=== PATIENT | female | born 1955 | race Caucasian/White ===

== ENCOUNTER 2017-08-21 11:57 | Emergency (ER) | payer BC ==
[2017-08-21 12:17] VITALS: BP 123/81
--- NOTE | 2017-08-21 13:02 | UC ---
Respiratory Complaint HPI - HPI Summary HPI Summary: Sore throat and cough for about 4 days. No fever. Sick relatives were visiting. She denies lung disease, smoking, asthma. It hurts more to cough. - History of Current Complaint Chief Complaint: UCRespiratory Stated Complaint: SORE THROAT,EARS Time Seen by Provider: 08/21/17 12:22 Hx Obtained From: Patient Hx Last Menstrual Period: 2 yrs ?: No Onset/Duration: Gradual Onset, Lasting Days Timing: Constant Severity Initially: Mild Severity Currently: Severe Pain Intensity: 7 Character: Cough: Productive - green. Aggravating Factors: Deep Breaths, Recumbent Position Alleviating Factors: Upright Position, Spontaneous Resolution Associated Signs And Symptoms: Positive: URI, Nasal Congestion. Negative: Dyspnea, Fever, Chills, Hemoptysis, Dizziness, Calf Pain, Calf Swelling - Risk Factors Pulmonary Embolism Risk Factors: Negative - Allergies/Home Medications Allergies/Adverse Reactions: Allergies Allergy/AdvReac Type Severity Reaction Status Date / Time Sulfa (Sulfonamide AdvReac Diarrhea Verified 08/21/17 12:18 Antibiotics) bee sting Allergy Swelling Uncoded 08/21/17 12:19 Of Face,Lips,& Throat Home Medications: Home Medications Ibuprofen TAB* [Motrin TAB* 400 MG] 400 mg PO ONCE PRN 08/21/17 [History Confirmed 08/21/17] Telmisartan 80 mg PO QPM 08/21/17 [History Confirmed 08/21/17] PMH/Surg Hx/FS Hx/Imm Hx Previously Healthy: No - HTN. - Surgical History Surgical History: Yes Surgery Procedure, Year, and Place: c-sections x4, appy 2008, L knee meniscus, ACL, patella repair 06/07 - Family History Known Family History: Positive: Hypertension - Social History Occupation: Employed Full-time Lives: With Family Alcohol Use: Rare Substance Use Type: None Smoking Status (MU): Never Smoked Tobacco - Immunization History Most Recent Influenza Vaccination: Not the Season Review of Systems ENT: Sore Throat Respiratory: Cough All Other Systems Reviewed And Are Negative: Yes Physical Exam Triage Information Reviewed: Yes Appearance: Well-Appearing, No Pain Distress, Well-Nourished Vital Signs: Initial Vital Signs Temp 97.7 F 08/21/17 12:07 Pulse 83 08/21/17 12:07 Resp 18 05/02/18 12:07 BP 123/81 08/21/17 12:07 Pulse Ox 98 08/21/17 12:07 Vital Signs Reviewed: Yes Eye Exam: Normal Eyes: Positive: Conjunctiva Clear ENT: Positive: Pharynx normal, TM bulging - There is burak fluid mild in both ears without purulent effusions., Uvula midline. Negative: Pharyngeal erythema , TM dull, TM red, Tonsillar swelling, Tonsillar exudate, Trismus, Muffled voice , Hoarse voice, Dental tenderness, Sinus tenderness Neck: Positive: Supple, Nontender, No Lymphadenopathy Respiratory: Positive: Chest non-tender, Lungs clear, Normal breath sounds, No respiratory distress, No accessory muscle use. Negative: Respiratory distress, Decreased breath sounds, Accessory muscle use, Crackles, Rhonchi, Stridor, Wheezing Cardiovascular: Positive: No Murmur, Pulses Normal, Brisk Capillary Refill Abdomen Description: Positive: No Organomegaly, Soft. Negative: Distended, Guarding Musculoskeletal: Positive: Strength Intact, ROM Intact, No Edema Neurological: Positive: Alert, Muscle Tone Normal. Negative: Fatigued Psychological: Positive: Age Appropriate Behavior Skin: Negative: rashes UC Diagnostic Evaluation - Laboratory O2 Sat by Pulse Oximetry: 98 Respiratory Course/Dx - Course Course Of Treatment: 4 days of uri symptoms. Sore throat is worse but no palpable adenopathy, purulence on the tonsils or fever to suggest strep throat. Supportive care described in detail. She did not want tessalon perles or note for work. - Differential Dx/Diagnosis Provider Diagnoses: uri. pharyngitis. viral illness. Discharge - Sign-Out/Discharge Documenting (check all that apply): Discharge/Admit/Transfer - Discharge Plan Condition: Good Disposition: HOME Patient Education Materials: Upper Respiratory Infection (ED), Pharyngitis (ED) Referrals: Heelna Rivera PA [Primary Care Provider] - If Needed - Billing Disposition and Condition Condition: GOOD Disposition: HOME
== END 2017-08-21 13:01 | disposition home or self-care (01) ==
LOC: UCCORT 11:57
DX: J06.9 Acute upper respiratory infection, unspecified (principal); J02.9 Acute pharyngitis, unspecified; B34.9 Viral infection, unspecified; Z88.2 Allergy status to sulfonamides; I10 Essential (primary) hypertension; Z91.030 Bee allergy status
CPT/HCPCS: 99211; G0463